=== PATIENT | male | born 2000 | race African-American/Black ===

== ENCOUNTER 2021-04-12 18:57 | Emergency (ER) | payer OTHER ==
[~2021-04-12] VITALS: Ht 180.3 cm; Wt 65.8 kg
[2021-04-12 19:12] VITALS: BP 130/80
[2021-04-12] MEDS ORDERED: CLIN300C12 PO (19:37)
[2021-04-12] MEDS ORDERED: CLINDAMYCIN HCL 150 MG CAPSULE PO ONE ×2 (19:43→20:00)
[2021-04-12] MEDS ORDERED: ACETAMINOPHEN ES 500 MG TABLET ONE (19:43)
[2021-04-12] MEDS ORDERED: ACETAMINOPHEN 325 MG TABLET PO ONE (20:00)
== END 2021-04-12 19:54 ==
LOC: ER 19:01
DX: S51.802A Unspecified open wound of left forearm, initial encounter (principal); L02.414 Cutaneous abscess of left upper limb; F20.9 Schizophrenia, unspecified; Z02.89 Encounter for other administrative examinations; X58.XXXA Exposure to other specified factors, initial encounter; Y93.89 Activity, other specified; Y92.89 Other specified places as the place of occurrence of the external cause; Y99.8 Other external cause status